=== PATIENT | male | born 1970 | race Hispanic/Latino ===

== ENCOUNTER → 2024-02-26 | Day surgery (SDC) | payer OTHER ==
[~2024-02-26] MED LIST: JANUMET XR 1001 EACH PO; PRAVASTATIN SOD20 MG PO; PROPOFOL IV EMULSION 50 ML IV ONE
[2024-02-26] MEDS: LACTATED RINGER'S 1,000 ML ONE (06:46)
[2024-02-26 09:05] VITALS: BP 140/84; PULSE 74; RESP 14; O2SAT 100
== END | disposition home or self-care (01) ==
LOC: OR 06:36
PROVIDERS: ATTEND Internal Medicine Gastroenterology
DX: Z12.11 Encounter for screening for malignant neoplasm of colon (principal); K64.8 Other hemorrhoids; I10 Essential (primary) hypertension; E78.00 Pure hypercholesterolemia, unspecified; E11.9 Type 2 diabetes mellitus without complications; Z79.84 Long term (current) use of oral hypoglycemic drugs; Z01.810 Encounter for preprocedural cardiovascular examination; Z79.899 Other long term (current) drug therapy
CPT/HCPCS: 36415; 45378; 82948; 93005; J2704; J7121